=== PATIENT | male | born 1960 | race Hispanic/Latino ===

== ENCOUNTER 2019-06-06 12:11 | Inpatient (IN) | payer OTHER ==
[~2019-06-06] VITALS: Ht 185.4 cm; Wt 104.0 kg
[2019-06-06] MEDS ORDERED: SODIUM CHLORIDE 0.9% 1000ML 1,000 ML IV STA ×3 (12:26→14:51)
[2019-06-06] MEDS ORDERED: ASPIRIN 81 MG CHEW TAB PO NR (12:30)
[2019-06-06] MEDS ORDERED: SODIUM CHLORIDE 0.9% 1000ML 1,000 ML ONE ×2 (12:41→14:58)
[2019-06-06] MEDS ORDERED: ACETAMINOPHEN 1000 MG/100 ML 100 ML IV ONE (12:41)
[2019-06-06] MEDS ORDERED: DILTIAZEM HCL 5 MG/ML 5 ML VIAL IV NR (12:45)
[2019-06-06] MEDS ORDERED: ACETAMINOPHEN 1000 MG/100 ML IV NR (12:45)
[2019-06-06 12:52] LABS: BASOPHILS # (AUTO) 0.1 (0.0-0.1); BASOPHILS % 0.3 % (0.0-1.0); EOSINOPHILS # (AUTO) 0.1 (0.0-0.4); EOSINOPHILS % 0.3 % (0.0-6.0); HEMATOCRIT 42.1 % (38.2-49.6); HEMOGLOBIN 14.2 g/dL (14.0-18.0); LYMPHOCYTES # (AUTO) 1.4 (1.0-3.2); LYMPHOCYTES % 7.9 % (18.0-39.1); MEAN CORPUSCULAR HEMOGLOBIN 32.9 pg (28-32); MEAN CORPUSCULAR HGB CONC 33.7 g/dL (31-35); MEAN CORPUSCULAR VOLUME 97.7 fL (81-99); MONOCYTES # (AUTO) 2.6 (0.2-0.8); MONOCYTES % 14.4 % (4.4-11.3); NEUTROPHILS # (AUTO) 13.8 (2.1-6.9); NEUTROPHILS % 76.4 % (38.7-80.0); PLATELET COUNT 131 x10e3/uL (140-360); RED BLOOD COUNT 4.31 x10e6/uL (4.3-5.7); RED CELL DISTRIBUTION WIDTH 13.2 % (11.7-14.4)
[2019-06-06 12:58] LABS: INR 1.13
[2019-06-06 12:59] LABS: PARTIAL THROMBOPLASTIN TIME 29.1 seconds (23.8-35.5)
[2019-06-06 13:09] LABS: ALANINE AMINOTRANSFERASE 24 IU/L (0-55); ALBUMIN 3.6 g/dL (3.5-5.0); ALKALINE PHOSPHATASE 76 IU/L (40-150); AMYLASE 17 U/L (25-125); ANION GAP 13.8 mmol/L (8-16); BLOOD UREA NITROGEN 16 mg/dL (7-26); BUN/CREATININE RATIO 16 (6-25); CALCIUM 9.2 mg/dL (8.4-10.2); CARBON DIOXIDE 21 mmol/L (22-29); CHLORIDE 103 mmol/L (98-107); CREATINE KINASE 295 IU/L (30-200); CREATININE, SERUM 1.02 mg/dL (0.72-1.25); EST GLOMERULAR FILTRATION RATE > 60 ML/MIN (60-); GLUCOSE 185 mg/dL (74-118); LIPASE 5 U/L (8-78); MAGNESIUM 1.9 MG/DL (1.3-2.1); POTASSIUM 3.8 mmol/L (3.5-5.1); SODIUM 134 mmol/L (136-145)
[2019-06-06] MEDS ORDERED: VANCOMYCIN 1GM/NS 250 ML 250 ML IV SCH (13:15)
[2019-06-06 13:28] LABS: THYROID STIMULATING HORMONE 0.708 uIU/mL (0.350-4.940)
[2019-06-06] MEDS ORDERED: IBUPROFEN 800MG/ 250ML 800 MG in SODIUM CHLORIDE 0.9% 250ML 250 ML IV ONE (13:30)
[2019-06-06 13:32] LABS: B-TYPE NATRIURETIC PEPTIDE2 126.9 pg/mL (0-100)
[2019-06-06] MEDS ORDERED: SODIUM CHLORIDE 0.9% 1000ML 3,400 ML IV ONE (13:45)
[2019-06-06] MEDS ORDERED: SODIUM CHLORIDE 0.9% 1000ML 3,400 ML IV SCH (13:45)
[2019-06-06] MEDS: CEFEPIME 2 GM/NS 0.9% 100 ML 100 ML IV SCH (14:00)
--- NOTE | 2019-06-06 14:07 | Diagnostic Imaging Report ---
Examination: Single AP view of the chest. COMPARISON: None. INDICATION: Atrial fibrillation DISCUSSION: Lines/tubes: None. Lungs: The lungs are well inflated and clear. No pneumonia or pulmonary edema. Pleura: No pleural effusion or pneumothorax. Heart and mediastinum: The heart and the mediastinum are unremarkable. Bones and soft tissues: No acute bony abnormalities. IMPRESSION: 1. No acute cardiopulmonary abnormalities. Signed by: Dr. Raheem Dickerson M.D. on 06/06/2019 2:04 PM
--- NOTE | 2019-06-06 14:12 | Diagnostic Imaging Report ---
EXAMINATION: CT of the abdomen and pelvis without contrast. TECHNIQUE: Helical CT images of the abdomen and pelvis were performed from the lung bases to the lesser trochanters. No intravenous contrast was given per renal stone protocol. Coronal and sagittal reformatted images were obtained.Dose modulation, iterative reconstruction, and/or weight based adjustment of the mA/kV was utilized to reduce the radiation dose to as low as reasonably achievable. COMPARISON: None. CLINICAL HISTORY:Pain DISCUSSION: ABSENCE OF INTRAVENOUS CONTRAST DECREASES SENSITIVITY FOR DETECTION OF FOCAL LESIONS AND VASCULAR PATHOLOGY. ABDOMEN/PELVIS: LOWER THORAX: Unremarkable. HEPATOBILIARY:No focal hepatic lesions. Hepatic steatosis. No biliary ductal dilation. The gallbladder is normal. SPLEEN: No splenomegaly. PANCREAS: No focal masses or ductal dilatation. ADRENALS: No adrenal nodules. KIDNEYS/URETERS: Left periureteral and perirenal stranding. No hydronephrosis. PELVIC ORGANS/BLADDER: The bladder is normal. PERITONEUM/RETROPERITONEUM: No free air or fluid. LYMPH NODES: No intra-abdominal,retroperitoneal, pelvic or inguinal lymphadenopathy. VESSELS: GI TRACT: No distention or wall thickening. BONES AND SOFT TISSUES: No bony destructive lesions. No soft tissue abnormalities. IMPRESSION: Findings of possible past left renal calculus versus ascending urinary tract infection Signed by: Dr. Raheem Dickerson M.D. on 06/06/2019 2:08 PM
[2019-06-06 14:28] LABS: INFLUENZAE A&B ANTIGEN (RAPID) NEGATIVE (NEGATIVE); STREPTOCOCCUS GRP A ANTIGEN NEGATIVE (NEGATIVE)
[2019-06-06 14:35] LABS: AMPHETAMINES SCREEN,URINE N (NEGATIVE); BENZODIAZEPINES SCREEN,URINE N (NEGATIVE); PHENCYCLIDINE SCREEN,URINE N (NEGATIVE)
[2019-06-06 14:41] LABS: BILIRUBIN,URINE NEGATIVE (NEGATIVE); CLARITY,URINE CLEAR (CLEAR); COLOR,URINE YELLOW (YELLOW); KETONES,URINE NEGATIVE (NEGATIVE); LEUKOCYTE ESTERASE ,URINE NEGATIVE (NEGATIVE); NITRITE,URINE NEGATIVE (NEGATIVE); PROTEIN,URINE DIPSTICK TRACE (NEGATIVE); URINE UROBILINOGEN 2 mg/dL (0.2 - 1)
[2019-06-06 14:46] LABS: BACTERIA,URINE RARE /HPF; EPITHELIAL CELLS,URINE FEW /LPF
[2019-06-06] MEDS ORDERED: METOPROLOL TARTRATE INJ 1 MG/ML VIAL IV NR (15:00)
--- NOTE | 2019-06-06 15:00 | NUR ---
DR. PARNELL AT BEDSIDE RE EVALUATING PATIENT
[2019-06-06] MEDS ORDERED: ADENOSINE 6MG/2ML 3 ML ONE (15:13)
[2019-06-06] MEDS ORDERED: DIGOXIN INJ 0.25 MG/ML 2 ML AMP IV NR (15:30)
[2019-06-06] MEDS ORDERED: AMIODARONE HCL 360MG 200 ML IV SCH ×2 (15:30→18:00)
[2019-06-06] MEDS ORDERED: AMIODARONE HCL 150MG 100 ML IV NR (15:30)
[2019-06-06] MEDS ORDERED: ONDANSETRON HCL INJ 2MG/ML 2ML 2 MG/ML VIAL IV PRN (15:45)
[2019-06-06] MEDS ORDERED: ADENOSINE 6 MG/2 ML VIAL IV NR (15:45)
--- NOTE | 2019-06-06 15:50 | NUR ---
DR. Anuja GAMINO AT BEDSIDE EVALUATING PATIENT AND SPEAKING TO FAMILY
[2019-06-06] MEDS: ENOXAPARIN SODIUM INJ 100 MG/ML SYR SC SCH (15:59)
--- OUTSIDE RECORDS SUMMARY | 2019-06-06 16:01 | XMS REPORT ---
Author [facility] Address Unknown Phone Unavailable Care Team Providers [facility] [employer] Liaison Officer Name Role Phone Anuja PARNELL Unavailable Unavailable Problems This patient has no known problems. Allergies, Adverse Reactions, Alerts This patient has no known allergies or adverse reactions. Medications This patient has no known medications. Results Test Description Test Time Test Comments Text Results Atomic Results Result Comments CT ABDOMEN/PELVIS WO 2019-06-06 14:04:00 [facility] [address] [address] Patient Name: SANJANA LEUNG SR MR #: [id number] : 1960 Age/Sex: 58/M Req #: [id number] Adm Physician: Ordered by: JASON PARNELL MD Report #: [id number] Location: ER Room/Bed: Procedure: [id number] CT/CT ABDOMEN/PELVIS WO Exam Date: 06/06/19 Exam Time: 1340 REPORT STATUS: Signed EXAMINATION: CT of the abdomen and pelvis without con trast. TECHNIQUE: Helical CT images of the abdomen and pelvis were performed from the lung bases to the lesser trochanters. No intravenous contrast was given per renal stone protocol. Coronal and sagittal reformatted images were obtained.Dose modulation, iterative reconstruction, and/or weight based adjustment of the mA/kV was utilized to reduce the radiation dose to as low as reasonably achievable. COMPARISON: None. CLINICAL HISTORY:Pain DISCUSSION: ABSENCE OF INTRAVENOUS CONTRAST DECREASES SENSITIVITY FOR DETECTION OF FOCAL LESIONS AND VASCULAR PATHOLOGY. ABDOMEN/PELVIS: LOWER THORAX: Unremarkable. HEPATOBILIARY:No focal hepatic lesions. Hepatic steatosis. No biliary ductal dilation. The gallbladder is normal. SPLEEN: No splenomegaly. PANCREAS: No focal masses or ductal dilatation. ADRENALS: No adrenal nodules. KIDNEYS/URETERS: Left periureteral and perirenal stranding. No hydronephrosis. PELVIC ORGANS/BLADDER: The bladder is normal. PERITONEUM/RETROPERITONEUM: No free air or fluid. LYMPH NODES: No intra- abdominal,retroperitoneal, pelvic or inguinal lymphadenopathy. VESSELS: GI TRACT: No distention or wall thickening. BONES AND SOFT TISSUES: No bony destructive lesions. No soft tissue abnormalities. IMPRESSION: Findings of possible past left renal calculus versus ascending urinary tract infection Signed by: Dr. Navneet Kessler M.D. on 06/06/2019 2:08 PM Dictated By: NAVNEET KESSLER MD 07 Transcribed By: ARAMIS on 06/06/191407 COPY TO: JASON PARNELL MD CHEST SINGLE (PORTABLE) 2019-06-06 14:03:[address] [address] Patient Name: SANJANA LEUNG SR MR #: [id number] : 1960 Age/Sex: 58/M Req #: [id number] Adm Physician: Ordered by: JASON PARNELL MD Report #: [id number] Location: ER Room/Bed: Procedure: [id number] DX/CHEST SINGLE (PORTABLE) Exam Date: 06/06/19 Exam Time: 1335 REPORT STATUS: Signed Examination: Single AP view of the chest. COM PARISON: None. INDICATION: Atrial fibrillation DISCUSSION: Lines/tubes: None. Lungs: The lungs are well inflated and clear. No pneumonia or pulmonary edema. Pleura: No pleural effusion or pneumothorax. Heart and mediastinum: The heart and the mediastinum are unremarkable. Bones and soft tissues: No acute bony abnormalities. IMPRESSION: 1. No acute cardiopulmonary abnormalities. Signed by: Dr. Navneet Kessler M.D. on 06/06/2019 2:04 PM Dictated By: NAVNEET KESSLER MD 03 Transcribed By: ARAMIS on 06/06/191403 COPY TO: JASON PARNELL MD
[2019-06-06] MEDS ORDERED: FENTANYL CITRATE/PF 100MCG/2 ML INJ ONE (16:10)
[2019-06-06] MEDS ORDERED: ETOMIDATE 40 MG/ 20ML VIAL IV ONE (16:12)
--- NOTE | 2019-06-06 16:14 | NUR ---
R.T. AT BEDSIDE. 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 RIGHT AC 18 GUAGE PATENT PATIENTS DAUGHTER REMAINED AT BEDSIDE WITH HIM.
--- NOTE | 2019-06-06 16:15 | NUR ---
PATIENT SHOCKED AT [address] PARNELL ALSO AT BEDSIDE
[2019-06-06] MEDS ORDERED: FENTANYL CITRATE/PF 100MCG/2 ML INJ IV NR (16:30)
[2019-06-06] MEDS ORDERED: ETOMIDATE 2 MG/ML 10 ML INJ IV NR (16:30)
--- NOTE | 2019-06-06 17:33 | NUR ---
DR. Anuja GAMINO AT BEDSIDE RE EVALUATING PATIENT
[2019-06-06] MEDS: SODIUM CHLORIDE 0.9% 1000ML 1,000 ML IV SCH (18:00)
[2019-06-06] MEDS: AZITHROMYCIN 500MG/NS 250 ML 250 ML IV SCH (18:00)
[2019-06-06] MEDS ORDERED: MELATONIN 5 MG TABLET PO PRN (18:15)
[2019-06-06] MEDS ORDERED: HYDRALAZINE HCL 20 MG/ML VIAL IV PRN (18:15)
[2019-06-06] MEDS ORDERED: ACETAMINOPHEN 1000 MG/100 ML IV PRN (19:00)
[2019-06-06] MEDS ORDERED: IBUPROFEN 800MG/ 250ML 800 MG in SODIUM CHLORIDE 0.9% 250ML 250 ML IV PRN (19:00)
[2019-06-06] MEDS: AMIODARONE HCL 900 MG in DEXTROSE 5 % 500ML BOTTLE 500 ML IV SCH (19:36)
[2019-06-06] MEDS: OSELTAMIVIR PHOSPHATE 75 MG CAP PO SCH (19:38)
[2019-06-06] MEDS ORDERED: METHOTREXATE2.5 MG PO (19:45)
[2019-06-06] MEDS ORDERED: ATORVASTATIN CA20 MG PO (19:45)
[2019-06-06] MEDS ORDERED: BENZONATATE200 MG PO (19:45)
[2019-06-06] MEDS ORDERED: HUMIRA40 MG/0.1 IM (19:45)
[2019-06-06 21:00] VITALS: BP_SYST 101; BP_SYST 89; BP_DIAS 62; BP_DIAS 72
[2019-06-06 21:02] VITALS: BP 101/72
[2019-06-06 22:00] VITALS: BP 91/56
--- NOTE | 2019-06-06 22:42 | Consultation ---
DATE OF CONSULTATION: 06/06/2019 Cardiology Consultation REASON FOR CONSULTATION: Atrial flutter with rapid ventricular response. HISTORY OF PRESENT ILLNESS: Mr. Lopez is a 58-year-old gentleman with a history of obesity and some skin cancer with recent surgical resection about 3-4 weeks ago of his anterior chest wall and nasal area, who is otherwise pretty robust and healthy. He comes into the emergency room after a 2-day history of progressively malaise, fevers, rigors, chills, and cough that is nonproductive. He was feeling poorly, went to [facility] where he was evaluated and at that time noted to have the upper respiratory tract infection symptoms and was given some medications for that. Of note, he had his vitals checked and over there, he was noted to have normal heart rate and normal rhythm. He presents to this institution after just feeling overall fatigue, malaise, lightheaded, and dizzy. Upon arrival here, he was noted to be febrile with a temperature of 104 and pulse of about 170 with subsequent hypotension at 97/70s. The patient received a dose of adenosine by the emergency room physician and confirmed the presence of a rapid underlying atrial flutter with atrial rate of 340 to 350 beats per minute. He is currently in atrial flutter going 2-1 with again hypotension with no really good treatment options. We had a long discussion with the patient and family in terms of various medical therapies and they are pretty adamant, so that he has never had a history of atrial arrhythmias in the past. The patient denies any previous palpitations. He denies any prior history of syncope. Family was pretty assured that he was in normal rhythm and this really has only recently started, perhaps a couple hours or so. After discussion in terms of treatment options, they wanted a more definitive therapy and we went ahead and proceeded with synchronized DC cardioversion under moderate sedation and had a 150 joule shock restoring him back into normal sinus rhythm. Subsequent hemodynamic shows heart rates in the 80s now and blood pressure 116/80. Sinus rhythm is confirmed by EKG, post cardioversion. The patient is moving all four extremities. He is back to his normal self and feels better. PAST MEDICAL HISTORY: History of skin cancer with removal of lesions in his anterior wall chest and right nasal area with Mohs surgery, this was done three weeks ago. PAST SURGICAL HISTORY: Above. FAMILY HISTORY: The patient denies any premature family history of coronary artery disease or any heart rhythm abnormalities. SOCIAL HISTORY: He is a lifelong nonsmoker. Denies any alcohol or illicit drug use. ALLERGIES: NO KNOWN DRUG ALLERGIES. HOME MEDICATIONS: None. REVIEW OF SYSTEMS: GENERAL: Positive for fevers, chills, malaise, and feeling generalized weakness with the rapid ventricular rate. HEENT: No headaches. Visual complaints. Positive for stuffy nose and sore throat. RESPIRATORY: Denies any pleuritic chest pain, does have cough that is nonproductive. CARDIOVASCULAR: Denies any chest pain or discomfort. Does have some lightheadedness and weakness. Denies any orthopnea, PND, or lower extremity edema. GI: Denies any abdominal pain, bright red blood per rectum, melena, or hematemesis. Positive for nausea. No vomiting. Denies any diarrhea. : Denies any dysuria, hematuria, or change in urinary frequency. MUSCULOSKELETAL: Positive for muscle aches and joint pains, but no leg swelling. ENDOCRINE: Denies any heat or cold intolerance. NEUROLOGIC: Denies any focal weakness, numbness, seizures, headache, history of TIA or stroke. Remainder of review of systems negative otherwise as mentioned. PHYSICAL EXAMINATION: VITAL SIGNS: Height of 72 inches, weight of 250 pounds, BMI is 33.9, temperature of 103.9, pulse is currently 81 post cardioversion, respiratory rate 18, blood pressure 116/80, and O2 saturation 100% on room air. GENERAL: Well-nourished and well-developed gentleman, who appears mildly ill. HEENT: Normocephalic and atraumatic. Pupils are equal, round, and reactive to light. Extraocular movements are intact. Oropharynx is clear. NECK: No elevation in jugular venous pulsation. No carotid bruits. CARDIOVASCULAR: Regular rate and rhythm. Normal S1 and S2. Soft 1/6 systolic murmur at the left lower sternal border. LUNGS: Fair air entry, relatively clear to auscultation. ABDOMEN: Soft, nontender, and obese. Normoactive bowel sounds. No hepatosplenomegaly. BACK: No costovertebral angle tenderness. EXTREMITIES: Warm with 2+ femoral pulses, 1 to 2+ pedal pulses. 2+ radial pulses. NEUROLOGIC: Cranial nerves 2 through 12 are intact. Strength is 5/5. Grossly nonfocal. PSYCH: Normal fluent speech. Appropriate affect. No anxiety or delusions. LABORATORY DATA: White count 18, hemoglobin 14.2, hematocrit 42.1, and platelets of 131. Sodium 134, potassium 3.8, chloride 103, bicarb of 21, BUN 16, creatinine 1.02, and glucose of 195. Lactic acid level 17, calcium 9.2, AST 26, ALT 24, alkaline phosphatase 76, total protein of 7.2, albumin 3.6, and BNP was 127. Troponin is less than 0.001. TSH 0.708. Amylase 17, lipase of 5. INR is 1.13. D-dimer 0.43. UDS is negative. UA shows 6 to 10 white cells. Influenza screen is negative. Group A strep test screen is negative. Chest x-ray is unremarkable. DIAGNOSES: 1. Atrial flutter with rapid ventricular response, associated and complicated by hypotension less than several hour duration, status post urgent DC cardioversion synchronized with 150 joule biphasic shock, back into normal sinus rhythm. 2. Sepsis, fevers with clinical upper respiratory tract infection with high-grade spiking fever, consider viral URI. 3. Obesity. PLAN AND RECOMMENDATIONS: 1. From a cardiovascular standpoint. I believe his atrial arrhythmias are precipitated by his underlying inflammatory state. 2. We will defer to primary team in terms of sepsis management. Did receive some IV fluid bolus here in the emergency room to help with the hypertension and recommend antibiotic, antiviral therapy per primary team. Scheduled for Rocephin and azithromycin for CPAP coverage. 3. Telemetry monitoring. 4. Received a dose of Lovenox prior to DC cardioversion. We will continue at 100 mg subcu b.i.d. for now. 5. We will continue to monitor this patient with you. MD SIMI Hanson/RHEA /[id number]
[2019-06-06 23:00] VITALS: BP 95/54
[2019-06-06 23:46] LABS: CREATINE KINASE 358 IU/L (30-200)
[2019-06-06 23:49] LABS: CREATINE KINASE MB < 1.00 ng/mL (0-4.3)
[2019-06-06 23:59] VITALS: BP 105/64
[2019-06-07] VITALS (19 sets, daily range): BP systolic 92–158; BP diastolic 54–97
[2019-06-07] MEDS: CEFEPIME 2 GM/NS 0.9% 100 ML 100 ML IV SCH ×3 (01:48→14:07)
[2019-06-07] MEDS: VANCOMYCIN 1GM/NS 250 ML 250 ML IV SCH ×2 (03:33→09:00)
[2019-06-07] MEDS: ENOXAPARIN SODIUM INJ 100 MG/ML SYR SC SCH ×2 (03:33→16:15)
[2019-06-07] MEDS: SODIUM CHLORIDE 0.9% 1000ML 1,000 ML IV SCH ×3 (04:12→21:07)
[2019-06-07] MEDS: ACETAMINOPHEN 325 MG TAB PO PRN ×2 (05:24→13:42)
[2019-06-07 06:06] LABS: BASOPHILS # (AUTO) 0.1 (0.0-0.1); BASOPHILS % 0.3 % (0.0-1.0); EOSINOPHILS % 0.1 % (0.0-6.0); HEMATOCRIT 38.4 % (38.2-49.6); HEMOGLOBIN 12.3 g/dL (14.0-18.0); LYMPHOCYTES # (AUTO) 2.5 (1.0-3.2); LYMPHOCYTES % 16.5 % (18.0-39.1); MEAN CORPUSCULAR VOLUME 102.9 fL (81-99); MONOCYTES # (AUTO) 2.4 (0.2-0.8); MONOCYTES % 15.8 % (4.4-11.3); NEUTROPHILS % 66.7 % (38.7-80.0); PLATELET COUNT 110 x10e3/uL (140-360); RED BLOOD COUNT 3.73 x10e6/uL (4.3-5.7); RED CELL DISTRIBUTION WIDTH 13.8 % (11.7-14.4)
[2019-06-07 06:48] LABS: ALANINE AMINOTRANSFERASE 67 IU/L (0-55); ALBUMIN 2.9 g/dL (3.5-5.0); ALBUMIN/GLOBULIN RATIO 0.9 (0.8-2.0); ALKALINE PHOSPHATASE 71 IU/L (40-150); BLOOD UREA NITROGEN 13 mg/dL (7-26); BUN/CREATININE RATIO 16 (6-25); CALCIUM 8.4 mg/dL (8.4-10.2); CARBON DIOXIDE 20 mmol/L (22-29); CHLORIDE 108 mmol/L (98-107); CHOL/HDL RATIO 3.9 (3.9-4.7); CHOLESTEROL 125 MD/DL (0-199); CREATININE, SERUM 0.81 mg/dL (0.72-1.25); EST GLOMERULAR FILTRATION RATE > 60 ML/MIN (60-); GLUCOSE 125 mg/dL (74-118); HDL CHOLESTEROL 32 MG/DL (40-60); LDL CHOLESTEROL 73 MG/DL (60-130); SODIUM 138 mmol/L (136-145); TRIGLYCERIDES 101 MG/DL (0-149)
[2019-06-07] MEDS: AMIODARONE HCL 900 MG in DEXTROSE 5 % 500ML BOTTLE 500 ML IV SCH (07:27)
[2019-06-07] MEDS: OSELTAMIVIR PHOSPHATE 75 MG CAP PO SCH ×2 (09:00→16:18)
[2019-06-07] MEDS: AZITHROMYCIN 500MG/NS 250 ML 250 ML IV SCH (10:04)
--- NOTE | 2019-06-07 16:52 | Consultation ---
DATE OF CONSULTATION: Pulmonary Critical Care Consultation CHIEF COMPLAINT: Fever and atrial fibrillation. HISTORY OF PRESENT ILLNESS: The patient is a 58-year-old man. He has a history of rheumatoid arthritis and psoriasis. He uses methotrexate and Humira as an outpatient. He has been on these medications for several years. The rheumatoid arthritis has affected his knees, possibly his neck. He has no renal involvement. He has never had pulmonary involvement. He complains of fever for the last several days. He noticed malaise and mild cough. He had chills. He went to the emergency department, was found to have SVT with a low blood pressure. He was seen by Cardiology and he required a cardioversion. PAST SURGICAL HISTORY: Removal of skin cancer several weeks ago. PAST MEDICAL HISTORY: 1. Rheumatoid arthritis. 2. Psoriasis. SOCIAL HISTORY: The patient has never been a smoker. He is not a drinker. FAMILY HISTORY: Noncontributory. ALLERGIES: NO KNOWN DRUG ALLERGIES. REVIEW OF SYSTEMS: The patient is afebrile now but did have fevers at home. He has no headache. He has no neck pain. He does not have any chest pain. He is not having any cough. He has no abdominal pain. No nausea, vomiting. No leg edema. No focal neurological complaints. No swollen joints. PHYSICAL EXAMINATION: VITAL SIGNS: The patient is now afebrile. The T-max was 100.3. The blood pressure is 113/73 and saturation is 98% on 2 L. HEENT: Shows no facial swelling or erythema. The oropharynx is normal. LYMPHATIC: Shows no submandibular, cervical, or supraclavicular adenopathy. CARDIAC: Reveals regular rate and rhythm with normal S1 and S2. There are no murmurs or rubs heard. LUNGS: Auscultation of lungs shows clear breath sounds bilaterally. There is no wheezing. ABDOMEN: Soft, nontender. There is no rebound or guarding. EXTREMITIES: Show no leg edema or calf tenderness. There is no cyanosis or clubbing. SKIN: Shows no rashes. NEUROLOGICAL: Shows no focal abnormalities. LABORATORY DATA: BUN to creatinine ratio is normal. The total bilirubin is 1.4, AST is 81 and ALT is 67. Albumin is 2.9. The PT is elevated at 15 and the platelet count is 110. The hemoglobin is 12.3 with an MCV of 103. The white blood cell count is 14.9. RADIOGRAPHIC DATA: Chest x-ray shows no active disease. CT scan of the abdomen and pelvis shows possible recent urinary tract infection. IMPRESSION: 1. Fever with sepsis from unknown etiology, present on admission. 2. Elevated transaminases. This is suggestive of possible liver disease. 3. Thrombocytopenia. 4. Rheumatoid arthritis. 5. Supraventricular tachycardia. PLAN: 1. Continue antibiotics. 2. Await culture results. 3. Continue Cardiology recommendations. 4. Abdominal ultrasound to evaluate for splenomegaly. William Stephen MD [facility]/MODL /[id number]
--- NOTE | 2019-06-07 19:57 | Consultation ---
DATE OF CONSULTATION: REASON FOR CONSULTATION: Sepsis, septic shock. HISTORY OF PRESENT ILLNESS: This patient is a very pleasant 58-year-old white gentleman, history of psoriasis on methotrexate and Humira. The patient has a history of skin cancer. Also, the patient was in usual state of health about couple days ago when he went to [facility], started to feel really bad of fatigue and came to the emergency room, where he almost passed out. In the emergency room, he was hypotensive, heart rate . His white count was elevated. He was admitted, he is currently in intensive care unit. He has been seen by Cardiology. He was found to have an atrial fibrillation, started on several antibiotics I was asked to see him. Today, the patient is alert, oriented. He has no complaints. He denies any history of frequency, but after reviewing the record with him, he does remember he had history of renal stones before. The patient has history of skin cancer removal. History of psoriasis on methotrexate and on Humira. ALLERGIES: NKA. SOCIAL HISTORY: He denies smoking, drug abuse, or alcohol abuse. FAMILY HISTORY: Noncontributory. REVIEW OF SYSTEMS: GENERAL: At the present time, the patient is doing much better since he came here. He has no fever, no chills, no nausea, no vomiting, no diarrhea. HEENT: No visual change or hearing change. GI: Negative. : Negative. At present time, all within normal limits. LABORATORY DATA: Reviewed. His blood cultures negative. His urine showing gram-negative brady. His laboratory data showed a white count on admission was 18.02, hemoglobin 14. His sodium 138, potassium 4.0, lactic acid 17. His bilirubin was 1.4. His AST 81, ALT 67. He had a CT scan of abdomen and pelvis as well as chest x-ray. The CT scan was reviewed and it was left renal calculus. PHYSICAL EXAMINATION: GENERAL: He is currently alert, oriented, does not seem to be in acute distress. VITAL SIGNS: Stable at present time. HEENT: Normocephalic, not icteric. NECK: Supple. No JVD. No carotid bruit. No thyromegaly. CHEST: Clear bilateral. HEART: S1, S2. No S3, S4, or murmur. ABDOMEN: Soft. Bowel sounds present. No tenderness. EXTREMITIES: No edema. SKIN: No rash. IMPRESSION: 1. Sepsis. We will put him on cefepime 2 g q.12. Agree with IV fluid. Await culture and sensitivity. We will hold off methotrexate. We will hold off any medication to compromise his immune system. Discussed with the patient. Discussed with the family. Discussed with medical team. 2. Atrial fibrillation. Cardiology is following. 3. Septic shock seems to be improving. 4. Renal calculus. Will follow with the Urology evaluation. We will follow. MD LISSY Garcia/MODL /[id number]
--- NOTE | 2019-06-07 21:06 | NUR ---
SPOKE TO JEFFREY AT THIS TIME REGARDING PATIENT C/O RIGHT FLANK PAIN 12/26. NEW ORDER RECEIVED FOR PRN MORPHINE 2MG IV.
[2019-06-07] MEDS ORDERED: MORPHINE SULFATE 2 MG/ML SYR 1ML IV PRN (21:15)
--- NOTE | 2019-06-07 22:13 | Consultation ---
DATE OF CONSULTATION: 06/07/2019 Urology Consultation REASON FOR CONSULTATION: Urosepsis. HISTORY OF PRESENT ILLNESS: Clinton Burrell is a 58-year-old man with a prior history of urolithiasis. The patient had a procedure, which sounds like ureteroscopy and stone extraction by Dr. Torsten Partida, who retired approximately 20 years ago. The procedure was done at [facility]. The patient was admitted with malaise, was found to have positive blood and urine cultures. CT scanning showed abnormality, positive urine culture, and Urological consultation was subsequently sought following CT scanning results. The patient denies hematuria or dysuria. He reports nocturia x1. He has a variable force of urinary stream. PAST MEDICAL AND SURGICAL HISTORY: 1. Skin cancer excised from the patient's anterior chest wall, nasal area, and forehead. 2. Atrial flutter with rapid ventricular response due to his current illness. 3. Hypercholesterolemia. ALLERGIES: NONE KNOWN. CURRENT MEDICATIONS: Please refer to MAR. REVIEW OF SYSTEMS: Discussed as above in the history of present illness and past medical history, otherwise negative for all systems. FAMILY HISTORY: Noncontributory to active urological problems. SOCIAL HISTORY: The patient denies smoking, ethanol, or drug use. 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 PHYSICAL EXAMINATION: GENERAL: Healthy-appearing 58-year-old man, lying in bed, in no apparent distress. VITAL SIGNS: He is currently afebrile. Vital signs are currently stable. ABDOMEN: Soft, nondistended, and nontender without costovertebral angle tenderness. Kidneys are not palpable without hepatosplenomegaly. No obvious evidence of hernia. GENITOURINARY: Testes descended bilaterally. Testes and epididymides bilaterally palpably normal. The patient has a normal uncircumcised male phallus with normal meatus without any lesion. Digital rectal examination is deferred at present time. For the remaining physical examination systems, please refer to the admission history and physical as well as the ERT sheet. LABORATORY STUDIES: Urine culture is preliminarily positive with gram-negative rods and sensitivities are pending. Throat culture showed usual respiratory vidya. Blood cultures are negative so far. The patient's white blood cell count is 14,950, was up to 18,020; hemoglobin is 12.3; and platelets 110,000. The patient's sodium was low at 134, has since normalized at 138. His creatinine is 0.81. Urinalysis significant for 6 to 10 rbc's, 6 to [address] scan of the abdomen and pelvis was done without contrast as a stone protocol, that showed left-sided fullness and some inflammation consistent with possibly a passed stone. ASSESSMENT: 1. Urinary tract infection with possible urosepsis. 2. Leukocytosis. 3. Anemia. 4. Thrombocytopenia. 5. Hyponatremia, improved. 6. Microhematuria. 7. Left pyelonephritis. 8. Possible passed stone. 9. History of kidney stones requiring intervention in the past. 10. Symptoms of benign prostatic hypertrophy. 11. Nocturia x1. PLAN: 1. Intravenous antibiotics per the ID service. 2. Hematological and electrolyte abnormalities per the primary team. 3. Ongoing urological followup is must. Once the patient is back to his usual form of health and possibly about a month from now, we will follow the patient up and then plan on cystoscopy and retrograde pyelograms to evaluate his urinary tract. Ongoing urological followup on indefinite basis is a must. We will also evaluate the patient's voiding symptomatology. Thank you very much for involving us in the care of your patient. We will be happy to follow along with you as well as an outpatient. Samir Belle MD [facility]/MODL /[id number] cc: Aydin Fisher
[2019-06-08] VITALS (7 sets, daily range): BP systolic 124–145; BP diastolic 77–84
[2019-06-08] MEDS: CEFEPIME 2 GM/NS 0.9% 100 ML 100 ML IV SCH ×2 (02:00→13:35)
[2019-06-08] MEDS: ACETAMINOPHEN 325 MG TAB PO PRN (03:02)
[2019-06-08] MEDS: ENOXAPARIN SODIUM INJ 100 MG/ML SYR SC SCH (03:42)
[2019-06-08] MEDS ORDERED: ACETAMINOPHEN/CODEINE 300MG - 30MG TAB PO PRN (05:30)
--- NOTE | 2019-06-08 07:00 | NUR ---
Received patient lying in bed with eyes open. Family members at bedside. Respiration even and unlabored without SOB. Call light in reach.
[2019-06-08 07:06] LABS: BASOPHILS % 0.3 % (0.0-1.0); EOSINOPHILS % 0.1 % (0.0-6.0); HEMATOCRIT 34.8 % (38.2-49.6); HEMOGLOBIN 11.3 g/dL (14.0-18.0); LYMPHOCYTES # (AUTO) 2.3 (1.0-3.2); LYMPHOCYTES % 19.9 % (18.0-39.1); MEAN CORPUSCULAR HEMOGLOBIN 32.1 pg (28-32); MEAN CORPUSCULAR HGB CONC 32.5 g/dL (31-35); MEAN CORPUSCULAR VOLUME 98.9 fL (81-99); MONOCYTES # (AUTO) 1.4 (0.2-0.8); MONOCYTES % 12.1 % (4.4-11.3); NEUTROPHILS # (AUTO) 7.7 (2.1-6.9); NEUTROPHILS % 67.1 % (38.7-80.0); PLATELET COUNT 114 x10e3/uL (140-360); RED BLOOD COUNT 3.52 x10e6/uL (4.3-5.7); RED CELL DISTRIBUTION WIDTH 13.2 % (11.7-14.4)
[2019-06-08 07:36] LABS: ALANINE AMINOTRANSFERASE 77 IU/L (0-55); ALBUMIN 2.7 g/dL (3.5-5.0); ALBUMIN/GLOBULIN RATIO 0.8 (0.8-2.0); ALKALINE PHOSPHATASE 77 IU/L (40-150); ANION GAP 12.3 mmol/L (8-16); BLOOD UREA NITROGEN 13 mg/dL (7-26); BUN/CREATININE RATIO 19 (6-25); CALCIUM 8.5 mg/dL (8.4-10.2); CARBON DIOXIDE 21 mmol/L (22-29); CHLORIDE 105 mmol/L (98-107); CREATININE, SERUM 0.67 mg/dL (0.72-1.25); EST GLOMERULAR FILTRATION RATE > 60 ML/MIN (60-); GLUCOSE 112 mg/dL (74-118); POTASSIUM 3.3 mmol/L (3.5-5.1); SODIUM 135 mmol/L (136-145)
[2019-06-08] MEDS: SODIUM CHLORIDE 0.9% 1000ML 1,000 ML IV SCH ×2 (07:37→18:53)
[2019-06-08] MEDS ORDERED: POTASSIUM CHLORIDE 20 MEQ TAB CR PO ONE ×2 (08:30→14:00)
[2019-06-08] MEDS: OSELTAMIVIR PHOSPHATE 75 MG CAP PO SCH (08:32)
--- NOTE | 2019-06-08 11:18 | Progress Note ---
DATE: SUBJECTIVE: The patient feels better. He is not having fevers. He was transferred out of the Intensive Care Unit yesterday. PHYSICAL EXAMINATION: VITAL SIGNS: The patient is afebrile. The vital signs are stable. HEENT: Shows no facial swelling or erythema. CARDIAC: Reveals regular rate and rhythm with normal S1 and S2. LUNGS: Auscultation of lungs shows clear breath sounds bilaterally. There is no wheezing. ABDOMEN: Soft, nontender. There is no rebound or guarding. EXTREMITIES: Show no leg edema or calf tenderness. There is no cyanosis or clubbing. SKIN: Shows no rashes. NEUROLOGICAL: Shows no focal abnormalities. IMPRESSION: 1. Urinary tract infection with sepsis, present on admission. 2. Supraventricular tachycardia requiring cardioversion. 3. Thrombocytopenia. 4. Rheumatoid arthritis. PLAN: 1. Continue current antibiotics. 2. Await culture results. 3. Continue to monitor platelet counts and blood counts. MD KIEL Moore/RHEA /[id number]
[2019-06-08] MEDS ORDERED: SODIUM CHLORIDE 0.9% 250ML 250 ML ONE (16:43)
--- NOTE | 2019-06-08 17:14 | Diagnostic Imaging Report ---
EXAM: Complete Abdominal Ultrasound INDICATION: Elevated liver enzymes ^Elevated transaminases thrombocytopenia COMPARISON: None. TECHNIQUE: Transverse and longitudinal images of the upper abdomen were obtained. FINDINGS: Liver: Size: 16.5 cm in the right midclavicular line, normal Appearance: Increased echogenicity, smooth contour Mass: No focal masses Spleen: Size: 11.7 cm in length, normal Echogenicity: Normal Mass: No focal masses Gallbladder: Stones/Sludge: None Wall: 0.4 cm Appearance: No wall thickening, pericholecystic fluid or hydrops. Sonographic Rader's Sign: Negative Bile Ducts: Intrahepatic Ducts: No dilatation Extrahepatic Ducts: Common bile duct measures 0.5 cm, no dilatation Pancreas: Not well seen Kidneys: Length: Right 12.3 cm Left 13.2 cm Echogenicity: Normal Collecting System: No hydronephrosis Stone: None Cyst/Mass: None Vessels: Aorta: Not well seen Inferior Vena Cava: Visualized portions are normal Main Portal Vein: 0.8 cm, normal size with hepatopetal flow. Free Fluid: No ascites or pleural effusion IMPRESSION: Slightly limited study due to overlying bowel gas. The pancreas and abdominal aorta are not well seen. Increased hepatic echogenicity could be due to fatty infiltration. No gallstones or sludge is seen. No renal stones are seen. Signed by: Dr. Ronni Saravia M.D. on 06/08/2019 5:11 PM
--- NOTE | 2019-06-08 19:00 | NUR ---
Walking rounds done. Patient to shower, family at bedside. Patient instructed to call for assistance as needed in [place] and verbalized understanding. Will continue to monitor.
--- NOTE | 2019-06-08 19:23 | NUR ---
Report given to night nurse. respiration even and unlabored without SOB. Call light in reach.
[2019-06-09] VITALS: BP 136/81
[2019-06-09] MEDS: CEFEPIME 2 GM/NS 0.9% 100 ML 100 ML IV SCH (02:00)
[2019-06-09 04:00] VITALS: BP 127/78
[2019-06-09] MEDS: SODIUM CHLORIDE 0.9% 1000ML 1,000 ML IV SCH ×2 (04:22→14:12)
[2019-06-09 07:11] LABS: BASOPHILS # (AUTO) 0.1 (0.0-0.1); BASOPHILS % 0.8 % (0.0-1.0); EOSINOPHILS # (AUTO) 0.1 (0.0-0.4); HEMATOCRIT 35.4 % (38.2-49.6); LYMPHOCYTES # (AUTO) 2.2 (1.0-3.2); LYMPHOCYTES % 30.5 % (18.0-39.1); MEAN CORPUSCULAR HEMOGLOBIN 32.8 pg (28-32); MEAN CORPUSCULAR HGB CONC 33.9 g/dL (31-35); MEAN CORPUSCULAR VOLUME 96.7 fL (81-99); MONOCYTES # (AUTO) 0.8 (0.2-0.8); MONOCYTES % 11.3 % (4.4-11.3); NEUTROPHILS # (AUTO) 3.9 (2.1-6.9); NEUTROPHILS % 54.3 % (38.7-80.0); PLATELET COUNT 144 x10e3/uL (140-360); RED BLOOD COUNT 3.66 x10e6/uL (4.3-5.7); RED CELL DISTRIBUTION WIDTH 13.1 % (11.7-14.4)
--- NOTE | 2019-06-09 07:20 | NUR ---
Walking rounds and report given. Call patel within reach.
[2019-06-09 07:55] LABS: ALANINE AMINOTRANSFERASE 82 IU/L (0-55); ALBUMIN 2.6 g/dL (3.5-5.0); ALKALINE PHOSPHATASE 88 IU/L (40-150); ANION GAP 11.8 mmol/L (8-16); BILIRUBIN,DIRECT 0.5 mg/dL (0.0-0.5); BLOOD UREA NITROGEN 10 mg/dL (7-26); BUN/CREATININE RATIO 15 (6-25); CALCIUM 9.1 mg/dL (8.4-10.2); CARBON DIOXIDE 22 mmol/L (22-29); CHLORIDE 106 mmol/L (98-107); CREATININE, SERUM 0.67 mg/dL (0.72-1.25); EST GLOMERULAR FILTRATION RATE > 60 ML/MIN (60-); GLUCOSE 93 mg/dL (74-118); POTASSIUM 3.8 mmol/L (3.5-5.1); SODIUM 136 mmol/L (136-145)
[2019-06-09 08:09] VITALS: BP 151/80
[2019-06-09] MEDS ORDERED: CEFTRIAXONE SOD 1 GM/NS 50 ML 50 ML IV SCH (10:00)
[2019-06-09 11:51] VITALS: BP 151/80
[2019-06-09 12:05] VITALS: BP 149/57
[2019-06-09 17:30] VITALS: BP 156/67
--- NOTE | 2019-06-09 19:00 | NUR ---
WALKING ROUNDS AND REPORT RECEIVED. PATIENT IS AWAKE, ALERT, AND ABLE TO MAKE NEEDS KNOWN. PATIENT AND FAMILY ARE READY TO GO HOME, WAITING ON PIPE FINISHER,VINNY TO DISCHARGE. PATIENT IS AWARE. BOTH INSTRUCTED TO CALL FOR ASSISTANCE NEEDED AND VERBALIZED UNDERSTANDING. CALL MITCHELL WITHIN REACH.
--- NOTE | 2019-06-09 19:28 | NUR ---
report given to oncoming nurse. pt stable.
[2019-06-09] MEDS ORDERED: KEFLEX500 MG PO (20:19)
[2019-06-09] MEDS ORDERED: VITAMIN C500 M2 PO (20:22)
--- NOTE | 2019-06-09 20:45 | NUR ---
Patient discharged home with written prescriptions, instructions. He verbalized understanding. IV dc'd, cath intact, and small dressing applied. Patient wheeled to private vehicle in stable condition.
--- NOTE | 2019-06-10 07:53 | Discharge Summary ---
HISTORY: Mr. Lopez is a 58-year-old male, who admitted with complaints of not feeling well for 3 days and fever of 103. He went today [facility] and got Tamiflu. He took one dose, but did not feel better, so he came to the emergency department. He denied dysuria, productive cough, nausea, vomiting, diarrhea, palpitations, dizziness, or muscle ache. He had a dry cough. In the emergency room, his EKG showed atrial flutter 2:1 with a rate of 169. He was successfully cardioverted in the emergency department. PAST MEDICAL HISTORY: Skin cancer and hyperlipidemia. PAST SURGICAL HISTORY: Surgery of the chest and right nostril and left scalp. FAMILY HISTORY: Mother and brother had myocardial infarction. SOCIAL HISTORY: Occasional alcohol. No tobacco or illicit drugs. ALLERGIES: NO KNOWN ALLERGIES. ADMITTING DIAGNOSES: 1. Severe sepsis, failed outpatient treatment, unknown source. 2. Atrial flutter with rapid ventricular response. 3. History of skin cancer. 4. Hyperlipidemia. 5. Rhabdomyolysis. 6. Obesity with BMI of 30.3. DISCHARGE DIAGNOSES: 1. Severe sepsis, due to urinary tract infection, present on arrival. 2. Urinary tract infection, pansensitive Escherichia coli, present on admission. 3. Atrial flutter with rapid ventricular response, status post cardioversion, resolved. 4. History of skin cancer. 5. Hyperlipidemia. 6. Rhabdomyolysis, resolved. 7. Obesity with BMI of 30.3. HOSPITAL COURSE: On admission; WBC is 18.02, today on day of discharge WBC is 7.17; hemoglobin went from 14.2 to 12; platelets 131 on admission and are now 144. On admit; BUN 16, creatinine 1.02, GFR greater than 60. Today, on the day of discharge; BUN 10, creatinine 0.67, GFR greater than 60. Cardiac enzymes were negative. Creatine kinase went from 295 to 402. However, the patient has no complaints of muscle pain. B-type natriuretic peptide was 126.9. Lactic acid was 17 on June 06. UA was positive for urinary tract infection. Influenza A and B were negative. Group A Strep screen was negative. Urine culture obtained on June 06 was positive for pansensitive E coli. Throat culture was negative and two blood cultures were negative. Chest x-ray was negative. CT of the abdomen and pelvis showed possible passed left renal calculus versus ascending urinary tract infection. Abdominal ultrasound showed no gallstones or sludge, increased hepatic echogenicity could be due to fatty infiltration. Consults included Dr. Rios with Infectious Disease, Dr. Garcia with Cardiology, Dr. Belle with Urology, and Dr. William Stephen with Pulmonology. The patient has been switched from cefepime to Rocephin 1 g IV q.24 hours. He was given a prescription for Keflex 500 mg p.o. b.i.d. for 2 weeks by Infectious Disease. We will also provide a prescription for vitamin C 500 mg p.o. b.i.d. for 2 weeks. He will not require any home health. Continue cardiac diet. Follow up with PCP in 1 to 2 weeks. Follow up with consultants as directed. Activity level as tolerated. Dictated by Lauro Johnson NP MD OFELIA MoniqueP/RHEA /[id number]
== END 2019-06-09 20:43 | disposition home or self-care (01) | DRG 871 ==
LOC: ER 12:11 → ERHOLD 15:59 → ICU 21:09 → MED/SURG 06-07 19:58
PROVIDERS: ADMIT Internal Medicine; ATTEND Internal Medicine
PROC: 5A2204Z Restoration of Cardiac Rhythm, Single (ICD-10-PCS; principal; 2019-06-06)
DX: A41.9 Sepsis, unspecified organism (principal); R65.21 Severe sepsis with septic shock; N39.0 Urinary tract infection, site not specified; I48.92 Unspecified atrial flutter; E87.1 Hypo-osmolality and hyponatremia; M62.82 Rhabdomyolysis; B96.20 Unspecified Escherichia coli [E. coli] as the cause of diseases classified elsewhere; M06.9 Rheumatoid arthritis, unspecified; E78.5 Hyperlipidemia, unspecified; D64.9 Anemia, unspecified; I95.9 Hypotension, unspecified; N40.0 Benign prostatic hyperplasia without lower urinary tract symptoms; E66.9 Obesity, unspecified; Z68.30 Body mass index [BMI] 30.0-30.9, adult; L40.9 Psoriasis, unspecified; R74.0 Nonspecific elevation of levels of transaminase and lactic acid dehydrogenase [LDH]; E80.6 Other disorders of bilirubin metabolism; Z82.49 Family history of ischemic heart disease and other diseases of the circulatory system; Z87.442 Personal history of urinary calculi
CPT/HCPCS: 36415; 71045; 74176; 76700; 80048; 80053; 80061; 80076; 80307; 81001; 82150; 82550; 82553; 83036; 83518; 83605; 83690; 83735; 83880; 84443; 84484; 85025; 85379; 85610; 85730; 86803; 87040; 87070; 87086; 87186; 87340; 87400; 93005; 93306; 99285; J0153; J0456; J0696; J1160; J1650; J2270; J2405; J3010; J3370; J7030; J7050

== ENCOUNTER 2019-06-23 02:02 | Emergency (ER) | payer OTHER ==
[~2019-06-23] VITALS: Ht 185.4 cm; Wt 103.9 kg
[~2019-06-23 02:02] MED LIST: ATORVASTATIN CA20 MG PO; BENZONATATE200 MG PO; HUMIRA40 MG/0.1 IM; KEFLEX500 MG PO; METHOTREXATE2.5 MG PO; VITAMIN C500 M2 PO
--- NOTE | 2019-06-23 02:42 | Diagnostic Imaging Report ---
EXAMINATION: CHEST 2 VIEWS INDICATION: Chest pain, soreness. COMPARISON: Chest radiograph 06/06/19. FINDINGS: TUBES and LINES: None. LUNGS: Lungs are well inflated. Mild patchy left basilar opacity, likely atelectasis. There is no evidence of pneumonia or pulmonary edema. PLEURA: No pleural effusion or pneumothorax. HEART AND MEDIASTINUM: The cardiomediastinal silhouette is unremarkable. There are atherosclerotic calcifications within the aorta. BONES AND SOFT TISSUES: No acute osseous abnormality. UPPER ABDOMEN: No free air under the diaphragm. IMPRESSION: No acute thoracic abnormality. Signed by: Dr. Dannie Patrick MD on 06/23/2019 2:39 AM
[2019-06-23 02:43] LABS: BASOPHILS # (AUTO) 0.1 (0.0-0.1); EOSINOPHILS # (AUTO) 0.2 (0.0-0.4); EOSINOPHILS % 2.7 % (0.0-6.0); HEMATOCRIT 41.7 % (38.2-49.6); HEMOGLOBIN 13.9 g/dL (14.0-18.0); LYMPHOCYTES # (AUTO) 2.4 (1.0-3.2); MEAN CORPUSCULAR HEMOGLOBIN 32.5 pg (28-32); MEAN CORPUSCULAR HGB CONC 33.3 g/dL (31-35); MEAN CORPUSCULAR VOLUME 97.4 fL (81-99); MONOCYTES # (AUTO) 0.6 (0.2-0.8); MONOCYTES % 11.4 % (4.4-11.3); NEUTROPHILS # (AUTO) 2.2 (2.1-6.9); NEUTROPHILS % 39.5 % (38.7-80.0); PLATELET COUNT 219 x10e3/uL (140-360); RED BLOOD COUNT 4.28 x10e6/uL (4.3-5.7); RED CELL DISTRIBUTION WIDTH 13.4 % (11.7-14.4)
[2019-06-23 02:58] LABS: ANION GAP 12.4 mmol/L (8-16); BLOOD UREA NITROGEN 11 mg/dL (7-26); BUN/CREATININE RATIO 16 (6-25); CALCIUM 10.2 mg/dL (8.4-10.2); CARBON DIOXIDE 24 mmol/L (22-29); CHLORIDE 102 mmol/L (98-107); CREATININE, SERUM 0.69 mg/dL (0.72-1.25); EST GLOMERULAR FILTRATION RATE > 60 ML/MIN (60-); GLUCOSE 134 mg/dL (74-118); POTASSIUM 3.4 mmol/L (3.5-5.1); SODIUM 135 mmol/L (136-145)
[2019-06-23 03:21] LABS: CREATINE KINASE 474 IU/L (30-200)
[2019-06-23 03:33] VITALS: BP 122/80
== END 2019-06-23 03:20 | disposition home or self-care (01) ==
LOC: ER 02:02
DX: R07.89 Other chest pain (principal); Z85.828 Personal history of other malignant neoplasm of skin; Z82.49 Family history of ischemic heart disease and other diseases of the circulatory system
CPT/HCPCS: 36415; 71046; 80048; 82550; 82553; 84484; 85025; 93005; 99283

== ENCOUNTER → 2022-09-26 | Outpatient (CLI) | payer OTHER ==
[~2022-09-26] MED LIST changes: +IOPAMIDOL 370 MG/ML 100 ML INFUS..BTL INJ ONE; +SODIUM CHLORIDE 0.9% 250ML 250 ML ONE
[2022-09-26 08:31] LABS: CREATININE, SERUM 0.73 mg/dL (0.72-1.25)
== END ==
LOC: CT 07:32
PROVIDERS: ATTEND Urology
DX: R31.21 Asymptomatic microscopic hematuria (principal)
CPT/HCPCS: 36415; 74178; 82565; 84520; J7050; Q9967